=== PATIENT | female | born 1980 | race Hispanic/Latino ===

== ENCOUNTER 2018-01-31 07:21 | Inpatient (IN) | payer OTHER, MEDICAID ==
[~2018-01-31] VITALS: Ht 165.1 cm; Wt 75.3 kg
[2018-01-31] MEDS ORDERED: LACTATED RINGERS 1000ML 1,000 ML IV PRN (07:23)
[2018-01-31] MEDS ORDERED: OXYTOCIN 10 USP UNITS/ML 20 UNIT in LACTATED RINGERS 1000ML 1,000 ML IV SCH (07:30)
[2018-01-31] MEDS ORDERED: OXYTOCIN-LR 20 UNITS/1000 ML 1,000 ML IV SCH ×2 (07:30→11:00)
[2018-01-31] MEDS ORDERED: LACTATED RINGERS 1000ML 1,000 ML IV ONE (07:45)
[2018-01-31] MEDS ORDERED: OXYTOCIN 10 USP UNITS/ML ONE ×2 (07:46→11:56)
[2018-01-31 08:22] LABS: HEMATOCRIT 28.6 % (36-48); MEAN CORPUSCULAR HEMOGLOBIN 20.6 pg (27.0-33.0); MEAN CORPUSCULAR HGB CONC 31.8 g/dL (32.0-36.0); MEAN CORPUSCULAR VOLUME 64.9 fL (79-99); NUCLEATED RED BLOOD CELLS 0.1 % (0.0-0.19); PLATELET COUNT (AUTO) 170 K/uL (130-400); RED BLOOD CELL COUNT(AUTO) 4.41 MIL/uL (4.00-5.50); RED CELL DISTRIBUTION WIDTH 18.6 % (11.0-15.5); WHITE BLOOD COUNT (AUTO) 8.8 K/uL (4.8-10.8)
[2018-01-31] MEDS ORDERED: MEASLES/MUMPS/RUBELLA VACCINE, LIVE 0.5 ML/VIAL SQ PRN (11:00)
[2018-01-31] MEDS ORDERED: ACETAMINOPHEN 325 MG TAB PO PRN (11:00)
[2018-01-31] MEDS ORDERED: LANOLIN 30GM OINTMENT TP PRN (11:00)
[2018-01-31] MEDS ORDERED: WITCH HAZEL 1 PAD TP PRN (11:00)
[2018-01-31] MEDS ORDERED: BENZOCAINE/LANOLIN/ALOE VERA 60 ML AEROSOL TP PRN (11:00)
[2018-01-31] MEDS ORDERED: DIPH,PERTUSS(ACELL),TET VAC/PF 0.5 ML VIAL IM PRN (11:00)
[2018-01-31 12:18] VITALS: BP 140/64
[2018-01-31] MEDS ORDERED: PREN1COM14 PO (12:23)
[2018-01-31] MEDS: IBUPROFEN 600 MG TABLET PO PRN (14:56)
[2018-01-31 16:11] VITALS: BP 114/65
[2018-01-31 19:02] VITALS: BP 122/70
[2018-01-31] MEDS: DOCUSATE SODIUM 100 MG CAP PO SCH (21:08)
[2018-01-31 23:36] VITALS: BP 129/76
[2018-02-01] MEDS: IBUPROFEN 600 MG TABLET PO PRN (03:26)
[2018-02-01 03:32] VITALS: BP 122/71
[2018-02-01 06:30] LABS: HEMATOCRIT 27.3 % (36-48); MEAN CORPUSCULAR HEMOGLOBIN 20.6 pg (27.0-33.0); MEAN CORPUSCULAR HGB CONC 31.8 g/dL (32.0-36.0); MEAN CORPUSCULAR VOLUME 64.7 fL (79-99); PLATELET COUNT (AUTO) 156 K/uL (130-400); RED BLOOD CELL COUNT(AUTO) 4.22 MIL/uL (4.00-5.50); RED CELL DISTRIBUTION WIDTH 18.6 % (11.0-15.5); WHITE BLOOD COUNT (AUTO) 9.8 K/uL (4.8-10.8)
[2018-02-01 07:25] VITALS: BP 127/86
[2018-02-01 08:18] LABS: HEPATITIS Bs ANTIGEN SCREEN P Negative (Negative)
[2018-02-01] MEDS: DOCUSATE SODIUM 100 MG CAP PO SCH (08:30)
[2018-02-01 11:13] VITALS: BP 134/77
== END 2018-02-01 12:50 | disposition home or self-care (01) | DRG 775 ==
LOC: LDH 07:21 → WSH 12:15
PROVIDERS: ADMIT Obstetrics & Gynecology; ATTEND Obstetrics & Gynecology
PROC: 10E0XZZ Delivery of Products of Conception, External Approach (ICD-10-PCS; principal; 2018-01-31)
PROC: 3E0234Z Introduction of Serum, Toxoid and Vaccine into Muscle, Percutaneous Approach (ICD-10-PCS; 2018-01-31)
PROC: 10907ZC Drainage of Amniotic Fluid, Therapeutic from Products of Conception, Via Natural or Artificial Opening (ICD-10-PCS; 2018-01-31)
PROC: 3E033VJ Introduction of Other Hormone into Peripheral Vein, Percutaneous Approach (ICD-10-PCS; 2018-01-31)
DX: O80 Encounter for full-term uncomplicated delivery (principal); Z3A.39 39 weeks gestation of pregnancy; Z37.0 Single live birth; Z23 Encounter for immunization
CPT/HCPCS: 36415; 85027; 86592; 86850; 86900; 86901; 87340; 90715; A4351; J2590; J7120

== ENCOUNTER 2023-09-09 19:21 | Inpatient (IN) | payer MEDICAID ==
[~2023-09-09] VITALS: Ht 165.1 cm; Wt 88.0 kg
[~2023-09-09 19:21] MED LIST: PREN1COM14 PO
[2023-09-09] MEDS: LACTATED RINGERS 1000ML 1,000 ML IV PRN (20:07)
[2023-09-09 20:20] LABS: BASOPHILS # (AUTO) 0.02 K/uL (0.00-0.20); BASOPHILS % (AUTO) 0.2 % (0.0-5.0); EOSINOPHILS # (AUTO) 0.03 K/uL (0.00-0.70); EOSINOPHILS % (AUTO) 0.3 % (0.0-8.0); HEMATOCRIT 30.7 % (36-48); IMMATURE GRANULOCYTE ABSOLUTE 0.06 K/uL (0-1); LYMPHOCYTES # (AUTO) 2.1 K/uL (1.0-4.8); LYMPHOCYTES % (AUTO) 20.5 % (21.0-51.0); MEAN CORPUSCULAR HGB CONC 29.3 g/dL (32.0-36.0); MEAN CORPUSCULAR VOLUME 68.4 fL (79-99); MONOCYTES # (AUTO) 0.6 K/uL (0.1-1.0); MONOCYTES % (AUTO) 5.7 % (3.0-13.0); NEUTROPHILS # (AUTO) 7.5 K/uL (1.8-7.7); NEUTROPHILS % (AUTO) 72.7 % (40.0-77.0); NUCLEATED RED BLOOD CELLS 0.4 % (0.0-0.19); PLATELET COUNT (AUTO) 160 K/uL (130-400); RED BLOOD CELL COUNT(AUTO) 4.49 MIL/uL (4.00-5.50); RED CELL DISTRIBUTION WIDTH 19.2 % (11.0-15.5); WHITE BLOOD COUNT (AUTO) 10.3 K/uL (4.8-10.8)
[2023-09-09 20:30] LABS: CREATININE 0.7 mg/dL (0.5-1.5); INR < 0.93 (0.85-1.15); POTASSIUM 3.7 mmol/L (3.5-5.1); PROTHROMBIN TIME 9.9 SEC (9.6-11.6)
[2023-09-09 20:32] LABS: PARTIAL THROMBOPLASTIN TIME 27.5 SEC (26.3-35.5)
[2023-09-09 20:34] LABS: ALBUMIN 2.7 g/dL (3.5-5.0); BILIRUBIN,TOTAL 0.2 mg/dL (0.2-1.0); TOTAL PROTEIN, SERUM 7.3 g/dL (6.0-8.3); URIC ACID 5.1 mg/dL (2.6-7.2)
[2023-09-09 20:35] LABS: FIBRINOGEN 499 mg/dL (180-350)
[2023-09-09 20:46] LABS: PLATELET MORPHOLOGY LARGE PLTS PRESENT
[2023-09-09 20:48] LABS: APPEARANCE,URINE CLEAR (CLEAR); BILIRUBIN,URINE NEGATIVE (NEGATIVE); COLOR,URINE YELLOW (YELLOW); GLUCOSE, URINE (UA) NEGATIVE (NEGATIVE); KETONES,URINE 10 mg/dL (NEGATIVE); LEUKOCYTE ESTERASE ,URINE NEGATIVE Leu/uL (NEGATIVE); NITRATE,URINE NEGATIVE (NEGATIVE); OCCULT BLOOD,URINE MODERATE (NEGATIVE); PROTEIN,URINE 30 mg/dL (NEGATIVE); UROBILINOGEN,URINE 0.2 mg/dL (0.2-1.0)
[2023-09-09 20:50] LABS: ADD UA MICROSCOPIC YES
[2023-09-09 20:52] LABS: MUCUS,URINE RARE LPF (None Seen); SQUAMOUS EPITHELIAL CELL,UR FEW /HPF (0-2)
[2023-09-10] MEDS: LACTATED RINGERS 1000ML 1,000 ML IV PRN (00:10)
[2023-09-10] MEDS: OXYTOCIN-LR 30 UNITS/500ML 500 ML IV SCH ×2 (08:53→18:15)
[2023-09-10] MEDS ORDERED: OXYTOCIN-LR 30 UNITS/500ML 500 ML IV SCH (09:00)
[2023-09-10] MEDS ORDERED: MISOPROSTOL 200 MCG TABLET ONE (14:23)
[2023-09-10] MEDS ORDERED: LIDOCAINE HCL 1% 20 ML VIAL ONE (14:23)
[2023-09-10] MEDS ORDERED: MIDAZOLAM HCL 1 MG/ML 2ML VIAL ONE (16:49)
[2023-09-10] MEDS ORDERED: ONDANSETRON 4MG INJ ONE (16:49)
[2023-09-10] MEDS ORDERED: ACETAMINOPHEN WITH CODEINE 1 TAB TAB PO PRN (18:30)
[2023-09-10] MEDS ORDERED: MEASLES/MUMPS/RUBELLA VACCINE, LIVE 0.5 ML/VIAL SQ PRN (18:30)
[2023-09-10] MEDS ORDERED: LANOLIN 30GM OINTMENT TP PRN (18:30)
[2023-09-10] MEDS ORDERED: DIPH,PERTUSS(ACELL),TET VAC/PF 0.5 ML VIAL IM PRN (18:30)
[2023-09-10] MEDS ORDERED: WITCH HAZEL 1 PAD TP PRN (18:30)
[2023-09-10] MEDS ORDERED: BENZOCAINE/LANOLIN/ALOE VERA 60 ML AEROSOL TP PRN (18:30)
[2023-09-10] MEDS ORDERED: ACETAMINOPHEN 325 MG TAB PO PRN (18:30)
[2023-09-10] MEDS: DOCUSATE SODIUM 100 MG CAP PO SCH (21:36)
[2023-09-10] MEDS: IBUPROFEN 600 MG TABLET PO PRN (23:05)
[2023-09-10 23:27] VITALS: BP 125/85; PULSE 93; RESP 18
[2023-09-11] MEDS: LACTATED RINGERS 1000ML 1,000 ML IV PRN (00:42)
[2023-09-11 03:19] VITALS: BP 123/85; PULSE 88; RESP 18
[2023-09-11] MEDS ORDERED: FLU VACC QS2023-24(6MOS UP)/PF 60 MCG/0.5 ML IM ONE (06:00)
[2023-09-11 07:12] VITALS: BP 135/78; PULSE 77; RESP 18
[2023-09-11] MEDS: DOCUSATE SODIUM 100 MG CAP PO SCH (08:29)
[2023-09-11] MEDS: IBUPROFEN 600 MG TABLET PO PRN (08:29)
[2023-09-11 09:42] LABS: HEMATOCRIT 25.7 % (36-48); MEAN CORPUSCULAR HEMOGLOBIN 20.1 pg (27.0-33.0); MEAN CORPUSCULAR HGB CONC 29.6 g/dL (32.0-36.0); MEAN CORPUSCULAR VOLUME 67.8 fL (79-99); NUCLEATED RED BLOOD CELLS 0.2 % (0.0-0.19); PLATELET COUNT (AUTO) 128 K/uL (130-400); RED BLOOD CELL COUNT(AUTO) 3.79 MIL/uL (4.00-5.50); WHITE BLOOD COUNT (AUTO) 10.6 K/uL (4.8-10.8)
[2023-09-11 11:51] VITALS: BP 146/96; PULSE 89; RESP 18
== END 2023-09-11 13:50 | disposition home or self-care (01) | DRG 541 ==
LOC: LDH 19:21 → WSH 09-10 20:34
PROVIDERS: ADMIT Obstetrics & Gynecology; ATTEND Obstetrics & Gynecology
PROC: 0UB70ZZ Excision of Bilateral Fallopian Tubes, Open Approach (ICD-10-PCS; 2023-09-10)
PROC: 10E0XZZ Delivery of Products of Conception, External Approach (ICD-10-PCS; principal; 2023-09-10 16:50)
DX: O80 Encounter for full-term uncomplicated delivery (principal); Z37.0 Single live birth; Z30.2 Encounter for sterilization; Z3A.37 37 weeks gestation of pregnancy
CPT/HCPCS: 36415; 80053; 81001; 82044; 84550; 85025; 85027; 85384; 85610; 85730; 86592; 86850; 86900; 86901; 87340; 88302; 90715; G0378; J2250; J2405; J7120; Q2035; A4248; Q2038